=== PATIENT | female | born 1980 | race Asian ===

== ENCOUNTER 2016-06-27 00:22 | Inpatient (IN) | payer SELFPAY ==
[~2016-06-27] VITALS: Ht 165.1 cm; Wt 72.6 kg
[2016-06-27] MEDS ORDERED: LACTATED RINGERS 1,000 ML IV SCH (01:02)
[2016-06-27] MEDS ORDERED: NALBUPHINE HYDROCHLORIDE 10 MG/ML VIAL IVP PRN (01:05)
[2016-06-27] MEDS ORDERED: OXYTOCIN 20 UNITS/LR PREMIX 1,000 ML IV SCH (01:05)
[2016-06-27] MEDS ORDERED: PROMETHAZINE 25 MG/ML VIAL IVP PRN (01:05)
[2016-06-27] MEDS ORDERED: MISOPROSTOL 25 MCG TAB VG PRN (01:05)
[2016-06-27] MEDS ORDERED: OXYTOCIN 10 UNITS/ML VIAL IM ONE (01:05)
[2016-06-27 01:37] LABS: BASOPHILS % (AUTO) 0.5 % (0.0-2.0); EOSINOPHILS # (AUTO) 0.1 K/uL (0-0.4); EOSINOPHILS % (AUTO) 1.3 % (0.0-4.0); HEMATOCRIT 39.8 % (36-48); HEMOGLOBIN 13.1 g/dL (12.0-16.0); LYMPHOCYTES # (AUTO) 1.2 K/uL (2.5-16.5); LYMPHOCYTES % (AUTO) 13.5 % (20.5-51.1); MEAN CORPUSCULAR HEMOGLOBIN 30 pg (27-31); MEAN CORPUSCULAR HGB CONC 33 g/dL (33-37); MEAN CORPUSCULAR VOLUME 91 fL (80-94); MONOCYTES # (AUTO) 0.7 K/uL (0.8-1.0); MONOCYTES % (AUTO) 7.9 % (1.7-9.3); NEUTROPHILS # (AUTO) 6.7 K/uL (1.8-7.7); NEUTROPHILS % (AUTO) 76.8 % (42.2-75.2); PLATELET COUNT (AUTO) 142 K/uL (140-450); RED BLOOD CELL COUNT(AUTO) 4.39 MIL/uL (4.20-5.40); RED CELL DISTRIBUTION WIDTH 12.8 % (11.6-13.7); WHITE BLOOD COUNT (AUTO) 8.7 K/uL (4.8-10.8)
[2016-06-27 01:37] LABS: APPEARANCE,URINE SL CLOUDY (CLEAR); BILIRUBIN,URINE NEGATIVE (NEGATIVE); BLOOD, URINE NEGATIVE (NEGATIVE); COLOR,URINE YELLOW (YELLOW); LEUKOCYTE ESTERASE ,URINE TRACE (NEGATIVE); NITRITE, URINE NEGATIVE (NEGATIVE); PROTEIN,URINE NEGATIVE (NEGATIVE); UGLUCOSE NEGATIVE (NEGATIVE); UROBILINOGEN,URINE 0.2 EU/dL (0.2 - 1)
[2016-06-27 02:13] LABS: HIV RAPID SCREEN NON-REACTIVE (NON REACTIV)
[2016-06-27] MEDS ORDERED: OXYTOCIN 20 UNITS/LR PREMIX 1,000 ML IV ONE (03:18)
[2016-06-27 03:36] VITALS: BP 115/75
[2016-06-27] MEDS ORDERED: FERR-193 PO (03:47)
[2016-06-27] MEDS ORDERED: PREN-546 PO (03:47)
[2016-06-27] MEDS ORDERED: VITA1TAB44 PO (03:47)
[2016-06-27 04:42] LABS: BACTERIA,URINE FEW /HPF (None Seen); RBC,URINE 0-5 (RARE) /HPF (0-5)
[2016-06-27] MEDS ORDERED: LIDOCAINE 1% 50 ML ONE (07:28)
[2016-06-27] MEDS ORDERED: OXYTOCIN 10 UNITS/ML VIAL ONE (07:28)
--- NOTE | 2016-06-27 09:00 | NUR ---
PATIENT HAS BEEN SCREENED AND CATEGORIZED LOW NUTRITION RISK. PATIENT WILL BE SEEN WITHIN 7 DAYS OF ADMISSION. 07/03/[address]
[2016-06-27] MEDS ORDERED: oxyCODONE/APAP 5/325 MG 1 TAB TAB PO PRN (09:50)
[2016-06-27] MEDS ORDERED: HYDROcodone/APAP 5/325 MG 1 TAB TAB PO PRN (09:50)
[2016-06-27] MEDS ORDERED: MEASLES, MUMPS, AND RUBELLA 1 VIAL SQVAC PRN (09:50)
[2016-06-27] MEDS ORDERED: IBUPROFEN 800 MG TAB PO PRN (09:50)
[2016-06-27] MEDS ORDERED: TEMAZEPAM 15 MG CAP PO PRN (09:50)
[2016-06-27] MEDS ORDERED: OXYTOCIN 10 UNITS/ML VIAL IM PRN (09:50)
[2016-06-27] MEDS ORDERED: BENZOCAINE/MENTHOL 20%-0.5% 60 GM CAN TP PRN (09:50)
[2016-06-27] MEDS ORDERED: METHYLERGONOVINE 0.2 MG/ML AMP IM PRN (09:50)
[2016-06-27] MEDS ORDERED: WITCH HAZEL 40 PAD PACKAGE TP PRN (09:50)
[2016-06-27 10:13] LABS: RAPID PLASMA REAGIN NON-REACTIVE (Non Reactiv)
[2016-06-27] MEDS ORDERED: DOCUSATE SOD/SENNA 50/8.6 MG 1 TAB PO SCH (21:00)
[2016-06-28 06:10] LABS: HEMATOCRIT 37.3 % (36-48); HEMOGLOBIN 12.7 g/dL (12.0-16.0)
== END 2016-06-29 19:00 | disposition home or self-care (01) | DRG 774 ==
LOC: MLD 00:22 → MFCC 11:35
PROVIDERS: ADMIT Obstetrics & Gynecology; ATTEND Obstetrics & Gynecology
PROC: 10E0XZZ Delivery of Products of Conception, External Approach (ICD-10-PCS; principal; 2016-06-27)
PROC: 10907ZC Drainage of Amniotic Fluid, Therapeutic from Products of Conception, Via Natural or Artificial Opening (ICD-10-PCS; 2016-06-27)
PROC: 0W8NXZZ Division of Female Perineum, External Approach (ICD-10-PCS; 2016-06-27)
PROC: 3E0234Z Introduction of Serum, Toxoid and Vaccine into Muscle, Percutaneous Approach (ICD-10-PCS; 2016-06-28)
DX: O69.1XX0 Labor and delivery complicated by cord around neck, with compression, not applicable or unspecified (principal); O46.93 Antepartum hemorrhage, unspecified, third trimester; O75.89 Other specified complications of labor and delivery; Z3A.39 39 weeks gestation of pregnancy; Z37.0 Single live birth; O09.523 Supervision of elderly multigravida, third trimester; Z23 Encounter for immunization
CPT/HCPCS: 36415; 51702; 59409; 81001; 85018; 85025; 86592; 86886; 86900; 86901; 90715; J2001; J2590; J7120